=== PATIENT | male | born 1945 | race Caucasian/White ===

== ENCOUNTER 2017-02-25 16:33 | Emergency (ER) | payer MEDICARE, OTHER ==
[~2017-02-25] VITALS: Wt 77.0 kg
[~2017-02-25 16:33] MED LIST: ATENOLOL; HYDROCHLOROTHIAZIDE; INSULIN GLARGINE; LIPITOR; NOVOLOG INSULIN
[2017-02-25] MEDS ORDERED: SOD CHLORIDE 0.9% 1,000 ML IV STA (20:24)
[2017-02-25] MEDS ORDERED: LIDOCAINE 1% (MDV) 10 ML INJ INJ STA (20:24)
[2017-02-25] MEDS ORDERED: ACETAMINOPHEN 500 MG TAB PO STA (21:03)
[2017-02-25] MEDS ORDERED: SOD CHLORIDE 0.9% 1,000 ML IV ONE (21:21)
[2017-02-25] MEDS ORDERED: CEPHALEXIN 500 MG CAP PO ONE (21:30)
--- NOTE | 2017-02-25 21:39 | RADRPT ---
PROCEDURE: CT Brain without contrast. CLINICAL INDICATION: Trauma, headache TECHNIQUE: A CT of the brain was performed utilizing axial imaging from the skull base through the vertex without intravenous contrast. Multiplanar reformatted images were made.The CTDIvol is 41.74 mGy and the DLP is 720.23 mGycm. One or more the following dose reduction techniques were utilized: Automated exposure control, adjus tment of the mA and / or kV according to patient's size, or use of iterative reconstruction techniqu e. COMPARISON: None. FINDINGS: There is no intracranial hemorrhage, mass effect, or midline shift. No extra-axial fluid collection is seen. Mild atrophy is identified with compensatory ventricular and sulcal enlargement. Moderat e decreased attenuation is seen in the periventricular and deep white matter, compatible with microv ascular ischemic disease. The mesa white matter differentiation is well preserved with no acute infa rct detected. The osseous structures and visualized paranasal sinuses are unremarkable. Arterial ca lcification. IMPRESSION: 1. No evidence of acute intracranial pathology. Right frontal extracranial soft tissue swelling. 2. Mild diffuse atrophy. 3. There is mild microvascular ischemic disease in the periventricular and deep white matter. RPTAT: HJES .Fredis Lamar MD, MD Date Time Electronically viewed and signed by .Fredis Lamar MD, on 02/25/2017 21:39 .S/
[2017-02-25] MEDS ORDERED: CEPH-443 PO (21:42)
[2017-02-25] MEDS ORDERED: ACET500C5 PO (21:42)
--- NOTE | 2017-02-25 21:48 | ERD ---
ER Documentation Chief Complaint Date/Time DATE: 02/25/17 TIME: 21:44 Chief Complaint GROUND LEVEL FALL NO LOC. FELL AND HIT FOREHEAD. NO NECK/BACK PAIN HPI This 71-year-old gentleman slipped on a wet garage last night at his home and hit his forehead on the concrete. He sustained a large laceration. This happened just over 24 hours ago. There is no history of loss of consciousness, vomiting, visual changes, neck pain, weakness. His tetanus is up-to-date. ROS All systems reviewed and are negative except as per history of present illness. Medications Home Meds Active Scripts Acetaminophen* (Tylophen*) 500 Mg Capsule, 1 CAP PO Q6H Y for PAIN AND OR ELEVATED TEMP, #15 CAP Prov:SAQIB COELLO MD 02/25/17 Cephalexin* (Keflex*) 500 Mg Capsule, 500 MG PO QID for 7 Days, CAP Prov:SAQIB COELLO MD 02/25/17 Reported Medications [Lantus 26 Units Q Hs] No Conflict Check 10/17/11 [Novolog Insulin] No Conflict Check 10/17/11 [Hydrochlorothiazide] No Conflict Check 10/17/11 [Atenolol] No Conflict Check 10/17/11 [Lipitor] No Conflict Check 10/17/11 Allergies Allergies: Coded Allergies: No Known Drug Allergies (Verified Allergy, 10/17/11) PMhx/Soc History of Surgery: Yes (RIGHT LEG, RIGHT ELBOW) Anesthesia Reaction: No Hx Neurological Disorder: No Hx Respiratory Disorders: No Hx Cardiac Disorders: Yes (HTN, CHOLESTEROL) Hx Psychiatric Problems: No Hx Miscellaneous Medical Probl: Yes (DM) Hx Alcohol Use: Yes (OCCASSIONAL) Hx Substance Use: No Hx Tobacco Use: No Smoking Status: Never smoker Physical Exam Vitals Vital Signs Date Time Temp Pulse Resp B/P Pulse Ox O2 Delivery O2 Flow Rate FiO2 02/25/17 16:38 99.5 102 20 128/83 98 Physical Exam Const: [], [id number], pleasant. Head: Atraumatic . There is a large 10 cm laceration across the forehead deep to the frontalis. There is no appreciable bony deformities. There is no active bleeding no significant dried blood across his face and the wound. Eyes: Normal Conjunctiva ENT: Normal External Ears, Nose and Mouth. Neck: Full range of motion..~ No meningismus.Nontender. Resp: Clear to auscultation bilaterally Cardio: Regular rate and rhythm, no murmurs Abd: Soft, non tender, non distended. Normal bowel sounds Skin: No petechiae or rashes Back: No midline or flank tenderness Ext: No cyanosis, or edema Neur: Awake and alert Psych: Normal Mood and Affect Results 24 hrs Laboratory Tests Test 02/25/17 20:31 Bedside Glucose 297mg/dL Current Medications Medications (Trade) Dose Ordered Sig/Sakshi Route PRN Reason Start Time Stop Time Status Last Admin Dose Admin Sodium Chloride (NS) 1,000 ml @ 1,000 mls/hr Q1H STAT IV 02/25/17 20:24 02/25/17 21:23 DC 02/25/17 21:17 Lidocaine HCl (Lidocaine 1% (Mdv) 10 ml) 10 ml ONCE STAT INJ 02/25/17 20:24 02/25/17 20:26 DC Cephalexin (Keflex) 500 mg ONCE ONCE PO 02/25/17 21:30 02/25/17 21:31 DC 02/25/17 21:25 Acetaminophen 500 mg 500 mg ONCE STAT PO 02/25/17 21:03 02/25/17 21:04 DC 02/25/17 21:25 Sodium Chloride (NS) 1,000 ml @ 0 mls/hr Q0M ONCE IV 02/25/17 21:21 02/25/17 21:22 DC 02/25/17 21:26 Procedures/MDM CT brain and cervical spine showed no acute abnormalities. There is spinal stenosis and degenerative changes of the cervical spine. Accu-Chek was 291. Patient was given 1 L normal saline IV. Procedure note-the wound was copiously irrigated with normal saline. Upon removal of clots was significant amount of bleeding. 6 cc of lidocaine was used for local infiltration. 12 4-0 nylon sutures were used to reapproximate the wound for hemostasis despite the wound being over 12 hours. Patient tolerated procedure well and compression dressing was applied. Patient presents with a forehead laceration and head injury after mechanical fall without evidence of bleeding, fracture, neck injury, there is no signs or symptoms to suggest sepsis or acute infection but patient will be treated with Tylenol and Keflex in 2 day wound check in 7-10 days suture removal. Departure Diagnosis: Primary Impression: Laceration Additional Impression: Head injury Encounter type: initial encounter Qualified Code: S09.90XA - Injury of head , initial encounter Condition: Stable Patient Instructions: HEAD INJURY, No Wake-Up (Adult), Laceration, Face ( Suture Or Tape) Additional Instructions: CT shows no fracture or bleeding recommend 2 day wound check for infection and 7 -10 days suture removal. Recheck sooner for vomiting, fevers, redness, new worsening symptoms. SAQIB COELLO MD Feb 25, 2017 21:48
--- NOTE | 2017-02-25 21:49 | RADRPT ---
PROCEDURE: CT Cervical Spine. CLINICAL INDICATION: Trauma, neck pain TECHNIQUE: A CT of the cervical spine was performed utilizing thin section axial images from the skull base through the thoracic inlet. Sagittal and coronal reformatted images were made. The CTDI vol is 22.11 mGy and the DLP is 428.12 mGycm. One or more the following dose reduction techniques were utilized: Automated exposure control, adjus tment of the mA and / or kV according to patient's size, or use of iterative reconstruction techniqu e. COMPARISON: None. FINDINGS: No acute fracture is seen. There is an approximate 4 mm anterior displacement of C3 vertebral body o n C4 secondary to severe facet degenerative changes and approximate 1.5 mm anterior displacement of C4 vertebral body on C5 secondary to facet degenerative changes and approximate 3 mm anterior displa cement of C7 vertebral body on T1 secondary to facet degenerative changes. There is approximate 2 mm retrolisthesis of C5 vertebral body on C6 secondary to degenerative changes. Degenerative disc bello ges are seen C3-4 through C7-T1. Facet degenerative changes are seen throughout the cervical spine. Uncovertebral degenerative changes in mid to lower cervical spine. There is severe central spinal st enosis and bilateral foraminal stenosis at C3-4. There is mild to moderate central spinal stenosis a nd bilateral foraminal stenosis at C4-5 and C5-6 and moderate central spinal stenosis and bilateral foraminal stenosis at C6-7. Bilateral cervical carotid calcification. IMPRESSION: No acute fracture or dislocation seen. Severe degenerative changes. There is severe central spinal s tenosis and bilateral foraminal stenosis at C3-4. There is mild to moderate central spinal stenosis and bilateral foraminal stenosis at C4-5 and C5-6 and moderate central spinal stenosis and bilateral foraminal stenosis at C6-7. Please see above. RPTAT: HJES .Fredis Lamar MD, MD Date Time Electronically viewed and signed by .Fredis Lamar MD, MD on 02/25/2017 21:48 .S/
[2017-02-25 23:26] VITALS: BP 119/77; PULSE 72; RESP 16; TEMP 98.3
== END 2017-02-25 23:27 | disposition home or self-care (01) ==
LOC: FTE 16:33
DX: S01.81XA Laceration without foreign body of other part of head, initial encounter (principal); S09.90XA Unspecified injury of head, initial encounter; E11.9 Type 2 diabetes mellitus without complications; I10 Essential (primary) hypertension; W01.198A Fall on same level from slipping, tripping and stumbling with subsequent striking against other object, initial encounter; Y92.9 Unspecified place or not applicable; Z79.4 Long term (current) use of insulin
CPT/HCPCS: 12015; 70450; 72125; 82962; 99285; J7030

== ENCOUNTER 2017-03-03 08:49 | Emergency (ER) | payer MEDICARE, OTHER ==
[~2017-03-03] VITALS: Wt 77.0 kg
[~2017-03-03 08:49] MED LIST changes: +ACET500C5 PO; +CEPH-443 PO
--- NOTE | 2017-03-03 11:11 | ERD ---
ER Documentation Chief Complaint Date/Time DATE: 03/03/17 TIME: 11:08 Chief Complaint suture removal on forehead HPI This is a 71-year-old female presents to the emergency department for suture removal of a laceration on the forehead that was done 7 days prior to be seen. Patient denies any complications. He denies any neuro deficits ROS All systems reviewed and are negative except as per history of present illness. Medications Home Meds Active Scripts Acetaminophen* (Tylophen*) 500 Mg Capsule, 1 CAP PO Q6H Y for PAIN AND OR ELEVATED TEMP, #15 CAP Prov:SAQIB COELLO MD 02/25/17 Cephalexin* (Keflex*) 500 Mg Capsule, 500 MG PO QID for 7 Days, CAP Prov:SAQIB COELLO MD 02/25/17 Reported Medications [Lantus 26 Units Q Hs] No Conflict Check 10/17/11 [Novolog Insulin] No Conflict Check 10/17/11 [Hydrochlorothiazide] No Conflict Check 10/17/11 [Atenolol] No Conflict Check 10/17/11 [Lipitor] No Conflict Check 10/17/11 Allergies Allergies: Coded Allergies: No Known Drug Allergies (Verified Allergy, Unknown, 03/03/17) PMhx/Soc History of Surgery: Yes (RIGHT LEG, RIGHT ELBOW) Anesthesia Reaction: No Hx Neurological Disorder: No Hx Respiratory Disorders: No Hx Cardiac Disorders: Yes (HTN, CHOLESTEROL) Hx Psychiatric Problems: No Hx Miscellaneous Medical Probl: Yes (DM) Hx Alcohol Use: Yes (OCCASSIONAL) Hx Substance Use: No Hx Tobacco Use: No Smoking Status: Never smoker Physical Exam Vitals Vital Signs Date Time Temp Pulse Resp B/P Pulse Ox O2 Delivery O2 Flow Rate FiO2 03/03/17 08:51 98.1 73 18 151/63 99 Physical Exam Const: [] Head: Atraumatic Eyes: Normal Conjunctiva ENT: Normal External Ears, Nose and Mouth. Neck: Full range of motion..~ No meningismus. Resp: Clear to auscultation bilaterally Cardio: Regular rate and rhythm, no murmurs Abd: Soft, non tender, non distended. Normal bowel sounds Skin: Sutures intact Back: No midline or flank tenderness Ext: No cyanosis, or edema Neur: Awake and alert Psych: Normal Mood and Affect Procedures/MDM This is a 71-year-old male presenting to the emergency department for suture removal of a repaired laceration that was done 7 days prior to being seen. No evidence of cellulitis. I have removed a few sutures and it appeared that it was not ready to be completely removed. I applied Steri-Strips with good approximation. I discussed with patient to return in 7 days to remove sutures. Discussed return sooner. . Departure Diagnosis: Primary Impression: Suture check Condition: Stable Patient Instructions: Suture Care, Laceration, Face (Suture Or Tape) Referrals: GERBER BURROUGHS MD (PCP) Additional Instructions: Return in 5-7 days for suture removal SHINE MILNER PA-C Mar 03, 2017 11:11
== END 2017-03-03 10:21 | disposition home or self-care (01) ==
LOC: FTE 08:49
DX: Z48.02 Encounter for removal of sutures (principal); I10 Essential (primary) hypertension; E11.9 Type 2 diabetes mellitus without complications; Z79.4 Long term (current) use of insulin
CPT/HCPCS: 99281

== ENCOUNTER 2017-03-10 08:36 | Emergency (ER) | payer OTHER ==
[~2017-03-10] VITALS: Ht 172.7 cm; Wt 75.5 kg
[2017-03-10 08:38] VITALS: Ht 172.7 cm; Wt 75.5 kg
--- NOTE | 2017-03-10 10:13 | ERD ---
ER Documentation Chief Complaint Date/Time DATE: 03/10/17 TIME: 10:12 Chief Complaint Suture removal; anterior head HPI This is a 71-year-old male here for suture removal on his forehead been there for almost 2 weeks. There is no erythema swelling or any complaints ROS All systems reviewed and are negative except as per history of present illness. Medications Home Meds Active Scripts Acetaminophen* (Tylophen*) 500 Mg Capsule, 1 CAP PO Q6H Y for PAIN AND OR ELEVATED TEMP, #15 CAP Prov:SAQIB COELLO MD 02/25/17 Cephalexin* (Keflex*) 500 Mg Capsule, 500 MG PO QID for 7 Days, CAP Prov:SAQIB COELLO MD 02/25/17 Reported Medications [Lantus 26 Units Q Hs] No Conflict Check 10/17/11 [Novolog Insulin] No Conflict Check 10/17/11 [Hydrochlorothiazide] No Conflict Check 10/17/11 [Atenolol] No Conflict Check 10/17/11 [Lipitor] No Conflict Check 10/17/11 Allergies Allergies: Coded Allergies: No Known Drug Allergies (Verified Allergy, Unknown, 03/10/17) PMhx/Soc History of Surgery: Yes (RIGHT LEG, RIGHT ELBOW) Anesthesia Reaction: No Hx Neurological Disorder: No Hx Respiratory Disorders: No Hx Cardiac Disorders: Yes (HTN, CHOLESTEROL) Hx Psychiatric Problems: No Hx Miscellaneous Medical Probl: Yes (DM) Hx Alcohol Use: Yes (OCCASSIONAL) Hx Substance Use: No Hx Tobacco Use: No Smoking Status: Never smoker FmHx Family History: No coronary disease Physical Exam Vitals Vital Signs Date Time Temp Pulse Resp B/P Pulse Ox O2 Delivery O2 Flow Rate FiO2 03/10/17 08:38 98.2 88 18 139/62 98 Physical Exam Const: [] Head: Atraumatic Eyes: Normal Conjunctiva ENT: Normal External Ears, Nose and Mouth. Neck: Full range of motion..~ No meningismus. Resp: Clear to auscultation bilaterally Cardio: Regular rate and rhythm, no murmurs Abd: Soft, non tender, non distended. Normal bowel sounds Skin: No petechiae or rashes, forehead wound is clean dry and intact with sutures in place. No sign of s infection Ext: No cyanosis, or edema Neur: Awake and alert Psych: Normal Mood and Affect Procedures/MDM Sutures removed by nurse Departure Diagnosis: Primary Impression: Encounter for removal of sutures Condition: Stable Patient Instructions: Suture Removal, No Complication Referrals: GERBER BURROUGHS MD (PCP) HERLINDA DE SANTIAGO DO Mar 10, 2017 10:13
== END 2017-03-10 11:14 | disposition home or self-care (01) ==
LOC: FTE 08:36
DX: Z48.02 Encounter for removal of sutures (principal); E11.9 Type 2 diabetes mellitus without complications; I10 Essential (primary) hypertension
CPT/HCPCS: 99281

== ENCOUNTER 2017-07-29 22:30 | Inpatient (IN) | END 2017-08-01 16:08 | disposition home health service (06) | DRG 593 ==